=== PATIENT | male | born 2000 | race Two or more races ===

== ENCOUNTER 2021-01-01 22:16 | Emergency (ER) | payer MEDICAID ==
[~2021-01-01] VITALS: Ht 172.7 cm; Wt 81.6 kg
[2021-01-01] MEDS ORDERED: TERBINAFINE HC250 MG PO (22:37)
--- NOTE | 2021-01-01 22:39 | Emergency Room Report ---
History of Present Illness General Chief Complaint: Lower Extremity Injury Source: Patient Present Illness HPI 20-year-old male here with right first toenail pain for 2 months. Patient says that he has noticed the toenail becoming yellow and thick. No injuries. No focal numbness or weakness. 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 COVID-19 Screening: Negative COVID-19 COVID-19 Testing Source: unknown Nursing Documentation-[facility] Past Medical History: No Stated History Review of Systems All Other Systems: negative except mentioned in HPI Physical Exam Vital Signs Date Time Temp Pulse Resp B/P (MAP) Pulse Ox O2 Delivery O2 Flow Rate FiO2 01/01/21 22:19 98.1 74 18 124/86 (99) 100 Room Air Sp02 EP Interpretation: reviewed, normal General Appearance: no apparent distress, alert, non-toxic Head: normocephalic, atraumatic Eyes: bilateral eye normal inspection, bilateral eye PERRL ENT: hearing grossly normal, normal pharynx, no angioedema, normal voice Neck: full range of motion, supple/symm/no masses Respiratory: chest non-tender, lungs clear, normal breath sounds, speaking full sentences Cardiovascular #1: regular rate, rhythm, no edema Cardiovascular #2: 2+ carotid (R), 2+ carotid (L), 2+ radial (R), 2+ radial (L), 2+ dorsalis pedis (R), 2+ dorsalis pedis (L) Gastrointestinal: normal bowel sounds, non tender, soft, non-distended, no guarding, no rebound Rectal: deferred Genitourinary: normal inspection, no CVA tenderness Musculoskeletal: back normal, normal range of motion, gait/station normal, non- tender, other - Right first toenail thickness and yellowing. No cellulitis Neurologic: alert, motor strength/tone normal, oriented x3, sensory intact, responsive, speech normal Psychiatric: judgement/insight normal, memory normal, mood/affect normal, no suicidal/homicidal ideation Lymphatic: no adenopathy Medical Decision Making Diagnostic Impression: Primary Impression: Onychomycosis ER Course 20-year-old male here with right first toenail pain for 2 months. No injuries. Physical examination revealed thickened yellow toenail. Consistent with likely onychomycosis. Given prescription for terbinafine. Digital block performed using bupivacaine. Patient tolerated procedure well and felt improved. Disc harged in stable condition. Last Vital Signs Date Time Temp Pulse Resp B/P (MAP) Pulse Ox O2 Delivery O2 Flow Rate FiO2 01/01/21 22:19 98.1 74 18 124/86 (99) 100 Room Air Disposition: HOME, SELF-CARE Condition: Stable Scripts Terbinafine Hcl* (LAMISIL*) 250 Mg Tablet 250 MG PO DAILY for 14 Days, TAB Prov: Amos Du M.D. 01/01/21 Referrals: [facility] Tapia. [facility] Patient Instructions: Amos Benitez M.D. Jan 01, 2021 22:39
--- NOTE | 2021-01-01 22:44 | NUR ---
ED Nurse Note: Pt c/o swollen, painful great toe, right foot x3 months. Pt ambulated into ED without difficulty, pt AAO x4.
[2021-01-01] MEDS ORDERED: Bupivacaine 0.25% Inj 30ml INJ ONE (22:45)
[2021-01-01] MEDS ORDERED: Bupivacaine 0.5% Inj 30 ml vial INJ ONE (22:45)
[2021-01-01 23:00] VITALS: BP 124/86
--- NOTE | 2021-01-01 23:02 | NUR ---
ED Nurse Note: Pt cleared by health care Provider for discharge. D/C instructions/prescription was given and explained to pt and pt verbalized understanding of teachings. All ID band removed. Pt is AAO x4, ambulatory and left with all personal belongings.
== END 2021-01-01 23:00 | disposition home or self-care (01) ==
LOC: EMR 22:28
DX: B35.1 Tinea unguium (principal)
CPT/HCPCS: 64450; S0020; Z7502; 99282